=== PATIENT | male | born 1955 | race Caucasian/White ===

== ENCOUNTER 2017-03-20 10:54 | Inpatient (IN) | payer OTHER ==
[~2017-03-20] VITALS: Ht 170.2 cm; Wt 73.4 kg
[~2017-03-20 10:54] MED LIST: ADULT MULTIVI200 MCG PO; AMLODIPINE BES2.5 MG PO; ASPIR 8181 M1 PO; ATENOLOL50 MG PO; ATORVASTATIN CA10 MG PO; CEFDINIR300 MG PO; FENOFIBRATE150 MG PO; FERROUS SULFAT325 MG PO; HYDROCHLOROTHIA25 MG PO; NAMENDA5 MG PO; PANTOPRAZOLE SO40 MG PO; QUETIAPINE FUMA25 MG PO; THERAGRAN1 TABLET PO; TRICOR145 MG PO; Thiamine,Vitamin B1 PO
[2017-03-20 11:34] LABS: EOSINOPHIL (%) 0 % (0-5); HEMATOCRIT 27.5 % (38.0-50.0); IMMATURE GRANULOCYTE (%) 2.5 % (0.0-0.7); IMMATURE GRANULOCYTE COUNT 0.1 K/uL; INSTRUMENT ABS NEUTROPHIL CT 4.2 K/uL; LYMPHOCYTE COUNT 0.3 K/uL (1.0-2.8); MCH 33.5 PG (29.0-34.0); MCHC 33.8 G/DL (30.0-36.0); MEAN PLAT.VOLUME 12.8 uM^3 (9.0-12.4); MONOCYTE (%) 14.7 % (3-12); MONOCYTE COUNT 0.8 K/uL (0-0.8); NEUTROPHIL (%) 76.4 % (45-76); NEUTROPHIL COUNT 4.2 K/uL (1.8-6.4); PLATELET COUNT 81 K/uL (156-360); RBC DIS.WIDTH-SD 50.1 % (39-53); RED BLOOD COUNT 2.78 M/uL (4.00-5.50); WHITE BLOOD COUNT 5.5 K/uL (4.1-10.2)
[2017-03-20 11:37] LABS: MCV 98.9 FL (86-99)
[2017-03-20 11:55] LABS: CHLORIDE 89 mEq/L (99-109); POTASSIUM 3.5 mEq/L (3.7-5.4); SODIUM 134 mEq/L (136-147)
[2017-03-20 11:57] LABS: GLUCOSE 86 mg/dL (70-99)
[2017-03-20 11:58] LABS: ANION GAP 34 MEQ/L (2-14)
[2017-03-20 11:59] LABS: TOTAL BILIRUBIN 4.3 mg/dL (0.0-1.0)
[2017-03-20 12:01] LABS: ALKALINE PHOSPHATASE 505 IU/L (3-129); GFR ESTIMATE (CALCULATED) 44 mL/min/
[2017-03-20 12:02] LABS: UREA NITROGEN (BUN) 46 mg/dL (9-23)
[2017-03-20 12:04] LABS: LIPASE 1005 U/L (1.0-51.0)
[2017-03-20] MEDS ORDERED: B-1100 MG PO (12:34)
[2017-03-20] MEDS ORDERED: EXELON3 MG PO (12:35)
[2017-03-20] MEDS ORDERED: FUROSEMIDE20 MG PO (12:36)
[2017-03-20] MEDS ORDERED: OMEPRAZOLE20 MG PO (12:36)
[2017-03-20] MEDS ORDERED: KLOR-CON20 MEQ PO (12:37)
[2017-03-20] MEDS ORDERED: LO-DOSE ASPIRIN81 M1 PO (12:37)
[2017-03-20 13:10] LABS: SERUM ETHYL ALCOHOL < 10 mg/dL
[2017-03-20 13:11] LABS: INTER. NORMALIZED RATIO 1.1; PROTHROMBIN TIME 12.2 SEC (10.2-12.9)
[2017-03-20 13:14] LABS: PTT 26.8 SEC (25-37)
[2017-03-20 13:21] LABS: ADD MIUA? YES; BILIRUBIN NEGATIVE; BLOOD SMALL; COLOR AMBER ((YELLOW)); GLUCOSE (STRIP) NEGATIVE; KETONES 20; LEUKOCYTES NEGATIVE; NITRITE NEGATIVE; PROTEIN (STRIP) 100; SPECIFIC GRAVITY 1.011 (1.000-1.030)
[2017-03-20 13:38] LABS: BACTERIA NONE SEEN /HPF; EPITHELIAL CELLS RARE /HPF; HYALINE CASTS 15-20 /LPF; MUCUS TRACE /LPF; RED BLOOD CELLS 0-5 /HPF (0-5); UCUL ADDED? NO; WHITE BLOOD CELLS 0-5 /HPF (0-5)
[2017-03-20 16:28] VITALS: BP 175/95
[2017-03-20 19:08] VITALS: BP 151/72
[2017-03-20 20:35] VITALS: BP 154/78
[2017-03-20 22:53] VITALS: BP 110/59
[2017-03-21 02:50] VITALS: BP 113/66
[2017-03-21 06:40] LABS: HEMATOCRIT 22.5 % (38.0-50.0); MCH 34.7 PG (29.0-34.0); MCHC 34.7 G/DL (30.0-36.0); MEAN PLAT.VOLUME 12.9 uM^3 (9.0-12.4); PLATELET COUNT 64 K/uL (156-360); RBC DIS.WIDTH-CV 14.1 % (11.8-14.6); RBC DIS.WIDTH-SD 51.6 % (39-53); RED BLOOD COUNT 2.25 M/uL (4.00-5.50); WHITE BLOOD COUNT 2.6 K/uL (4.1-10.2)
[2017-03-21 06:50] LABS: PROTHROMBIN TIME 11.5 SEC (10.2-12.9)
[2017-03-21 06:52] VITALS: BP 99/58
[2017-03-21 06:53] LABS: PTT 34.9 SEC (25-37)
[2017-03-21 07:20] LABS: ANION GAP 24 MEQ/L (2-14); CHLORIDE 96 MEQ/L (99-109); GFR ESTIMATE (CALCULATED) > 59 mL/min/; GLUCOSE 71 mg/dL (70-99); LIPASE 982 U/L (1.0-51.0); POTASSIUM 2.8 MEQ/L (3.7-5.4); SAMPLE HEMOLYSIS CHECK 0; SAMPLE ICTERIC CHECK 0; SAMPLE LIPEMIA CHECK 0; SODIUM 140 MEQ/L (136-147); UREA NITROGEN (BUN) 36 mg/dL (9-23)
[2017-03-21 11:21] VITALS: BP 105/56
[2017-03-21 12:37] LABS: INTERNAL CONTROL VALID? YES
[2017-03-21 15:50] VITALS: BP 103/55
[2017-03-21 19:24] VITALS: BP 105/60
[2017-03-21 23:03] VITALS: BP 104/59
[2017-03-22 02:57] VITALS: BP 125/66
[2017-03-22 07:02] LABS: HEMATOCRIT 22.1 % (38.0-50.0); MCH 33.5 PG (29.0-34.0); MCHC 33.9 G/DL (30.0-36.0); MCV 98.7 FL (86-99); MEAN PLAT.VOLUME 12.6 uM^3 (9.0-12.4); PLATELET COUNT 66 K/uL (156-360); RBC DIS.WIDTH-CV 13.9 % (11.8-14.6); RBC DIS.WIDTH-SD 50.9 % (39-53); RED BLOOD COUNT 2.24 M/uL (4.00-5.50); WHITE BLOOD COUNT 2.6 K/uL (4.1-10.2)
[2017-03-22 07:43] LABS: ALKALINE PHOSPHATASE 335 IU/L (3-129); ANION GAP 13 MEQ/L (2-14); CHLORIDE 104 MEQ/L (99-109); GFR ESTIMATE (CALCULATED) > 59 mL/min/; LIPASE 687 U/L (1.0-51.0); POTASSIUM 2.8 MEQ/L (3.7-5.4); SAMPLE HEMOLYSIS CHECK 0; SAMPLE ICTERIC CHECK 0; SAMPLE LIPEMIA CHECK 0; SODIUM 141 MEQ/L (136-147); UREA NITROGEN (BUN) 25 mg/dL (9-23)
[2017-03-22 07:51] LABS: GLUCOSE 110 mg/dL (70-99); MAGNESIUM 0.8 mg/dl (1.3-2.7)
[2017-03-22 08:55] VITALS: BP 115/72
[2017-03-22 12:39] VITALS: BP 122/74
[2017-03-22 16:18] VITALS: BP 117/72
[2017-03-22 19:28] VITALS: BP 113/64
[2017-03-22 22:54] VITALS: BP 133/81
[2017-03-23 02:54] VITALS: BP 146/89
[2017-03-23 06:00] LABS: HEMATOCRIT 22.4 % (38.0-50.0); MCH 34.4 PG (29.0-34.0); MCHC 33.9 G/DL (30.0-36.0); MCV 101.4 FL (86-99); MEAN PLAT.VOLUME 12.6 uM^3 (9.0-12.4); PLATELET COUNT 74 K/uL (156-360); RBC DIS.WIDTH-CV 14.5 % (11.8-14.6); RBC DIS.WIDTH-SD 52.8 % (39-53); RED BLOOD COUNT 2.21 M/uL (4.00-5.50); WHITE BLOOD COUNT 2.6 K/uL (4.1-10.2)
[2017-03-23 06:39] LABS: ALKALINE PHOSPHATASE 357 IU/L (3-129); ANION GAP 9 MEQ/L (2-14); CHLORIDE 110 MEQ/L (99-109); GFR ESTIMATE (CALCULATED) > 59 mL/min/; GLUCOSE 103 mg/dL (70-99); SAMPLE HEMOLYSIS CHECK 0; SAMPLE ICTERIC CHECK 0; SAMPLE LIPEMIA CHECK 0; SODIUM 142 MEQ/L (136-147); TOTAL BILIRUBIN 1.6 MG/DL (0.0-1.0); UREA NITROGEN (BUN) 14 mg/dL (9-23)
[2017-03-23 06:41] LABS: POTASSIUM 3.5 MEQ/L (3.7-5.4)
[2017-03-23 06:42] LABS: MAGNESIUM 1.4 mg/dl (1.3-2.7)
[2017-03-23 07:54] VITALS: BP 129/65
[2017-03-23 11:52] VITALS: BP 144/74
[2017-03-23 15:52] VITALS: BP 130/64
[2017-03-23 22:50] VITALS: BP 138/72
[2017-03-24 06:40] LABS: HEMATOCRIT 22.4 % (38.0-50.0); MCH 34.3 PG (29.0-34.0); MCV 103.7 FL (86-99); MEAN PLAT.VOLUME 12.9 uM^3 (9.0-12.4); NRBC (%) 0.7 /100 WBC (0-0); PLATELET COUNT 83 K/uL (156-360); RBC DIS.WIDTH-SD 56.6 % (39-53); RED BLOOD COUNT 2.16 M/uL (4.00-5.50)
[2017-03-24 07:05] LABS: ALKALINE PHOSPHATASE 337 IU/L (3-129); ANION GAP 9 MEQ/L (2-14); CHLORIDE 112 MEQ/L (99-109); GFR ESTIMATE (CALCULATED) > 59 mL/min/; GLUCOSE 94 mg/dL (70-99); POTASSIUM 4.1 MEQ/L (3.7-5.4); SAMPLE HEMOLYSIS CHECK 0; SAMPLE ICTERIC CHECK 0; SAMPLE LIPEMIA CHECK 0; SODIUM 142 MEQ/L (136-147); TOTAL BILIRUBIN 1.5 MG/DL (0.0-1.0); UREA NITROGEN (BUN) 11 mg/dL (9-23)
[2017-03-24 08:16] VITALS: BP 103/68
[2017-03-24 15:00] VITALS: BP 124/74
[2017-03-24 19:35] VITALS: BP 118/71
[2017-03-25 00:22] VITALS: BP 136/86
[2017-03-25 06:44] LABS: HEMATOCRIT 26.6 % (38.0-50.0); MCH 33.7 PG (29.0-34.0); MCHC 32.7 G/DL (30.0-36.0); MCV 103.1 FL (86-99); MEAN PLAT.VOLUME 12.4 uM^3 (9.0-12.4); RBC DIS.WIDTH-CV 15.3 % (11.8-14.6); RED BLOOD COUNT 2.58 M/uL (4.00-5.50); WHITE BLOOD COUNT 4.4 K/uL (4.1-10.2)
[2017-03-25 06:46] LABS: PLATELET COUNT 124 K/uL (156-360)
[2017-03-25 07:01] LABS: ALKALINE PHOSPHATASE 379 IU/L (3-129); ANION GAP 11 MEQ/L (2-14); CHLORIDE 105 MEQ/L (99-109); GFR ESTIMATE (CALCULATED) > 59 mL/min/; GLUCOSE 101 mg/dL (70-99); POTASSIUM 4.2 MEQ/L (3.7-5.4); SAMPLE HEMOLYSIS CHECK 0; SAMPLE ICTERIC CHECK 0; SAMPLE LIPEMIA CHECK 0; SODIUM 138 MEQ/L (136-147); TOTAL BILIRUBIN 1.8 MG/DL (0.0-1.0); UREA NITROGEN (BUN) 12 mg/dL (9-23)
[2017-03-25 08:51] VITALS: BP 125/78
[2017-03-25 15:06] VITALS: BP 115/75
[2017-03-25 20:59] VITALS: BP 114/69
[2017-03-25 23:17] VITALS: BP 123/58
[2017-03-25 23:18] VITALS: BP 123/58
[2017-03-26] MEDS ORDERED: CHLORDIAZEPOXID25 MG PO (06:15)
[2017-03-26] MEDS ORDERED: FLUOXETINE HCL20 MG PO (06:15)
[2017-03-26 07:46] VITALS: BP 111/66
[2017-03-26 07:46] LABS: HEMATOCRIT 28.1 % (38.0-50.0); MCH 33.6 PG (29.0-34.0); MCHC 32.4 G/DL (30.0-36.0); MCV 103.7 FL (86-99); MEAN PLAT.VOLUME 12.2 uM^3 (9.0-12.4); PLATELET COUNT 137 K/uL (156-360); RBC DIS.WIDTH-CV 15.5 % (11.8-14.6); RED BLOOD COUNT 2.71 M/uL (4.00-5.50); WHITE BLOOD COUNT 4.7 K/uL (4.1-10.2)
[2017-03-26 08:11] LABS: ALKALINE PHOSPHATASE 387 IU/L (3-129); ANION GAP 12 MEQ/L (2-14); CHLORIDE 105 MEQ/L (99-109); GFR ESTIMATE (CALCULATED) > 59 mL/min/; GLUCOSE 102 mg/dL (70-99); POTASSIUM 4.6 MEQ/L (3.7-5.4); SAMPLE HEMOLYSIS CHECK 0; SAMPLE ICTERIC CHECK 0; SAMPLE LIPEMIA CHECK 0; SODIUM 134 MEQ/L (136-147); TOTAL BILIRUBIN 1.7 MG/DL (0.0-1.0); UREA NITROGEN (BUN) 13 mg/dL (9-23)
== END 2017-03-26 11:44 | disposition home health service (06) | DRG 438 ==
LOC: EME 10:54 → 5EAST 14:35 → EDOF 14:35 → ENRESERV 14:36 → 5EAST 16:14 → ENPENDDIS 03-26 → 5EAST 03-26 11:44
PROVIDERS: Emergency Medicine; Hospitalist; Internal Medicine; Specialist
DX: K85.20 Alcohol induced acute pancreatitis without necrosis or infection (principal); K83.1 Obstruction of bile duct; F10.188 Alcohol abuse with other alcohol-induced disorder; E87.2 Acidosis; E87.1 Hypo-osmolality and hyponatremia; D61.818 Other pancytopenia; E44.0 Moderate protein-calorie malnutrition; F33.9 Major depressive disorder, recurrent, unspecified; N17.9 Acute kidney failure, unspecified; E83.42 Hypomagnesemia; E87.6 Hypokalemia; K70.40 Alcoholic hepatic failure without coma; K70.30 Alcoholic cirrhosis of liver without ascites; Y90.0 Blood alcohol level of less than 20 mg/100 ml; F17.210 Nicotine dependence, cigarettes, uncomplicated; I10 Essential (primary) hypertension; K21.9 Gastro-esophageal reflux disease without esophagitis; K70.10 Alcoholic hepatitis without ascites; K76.0 Fatty (change of) liver, not elsewhere classified; Z79.82 Long term (current) use of aspirin; Z87.11 Personal history of peptic ulcer disease; Z96.641 Presence of right artificial hip joint; Z60.2 Problems related to living alone
CPT/HCPCS: 36415; 74181; 76705; 80048; 80053; 81003; 82140; 83630; 83690; 83735; 84100; 85025; 85027; 85610; 85730; 87177; 87506; 99281; 99285; G0480; J0610; J1644; J3411; J3475; J3480; J7030; J7040; J7050

== ENCOUNTER 2017-04-07 23:01 | Inpatient (IN) | payer OTHER ==
[~2017-04-07] VITALS: Ht 170.2 cm; Wt 71.4 kg
[~2017-04-07 23:01] MED LIST changes: +B-1100 MG PO; +CHLORDIAZEPOXID25 MG PO; +EXELON3 MG PO; +FLUOXETINE HCL20 MG PO; +FUROSEMIDE20 MG PO; +KLOR-CON20 MEQ PO; +LO-DOSE ASPIRIN81 M1 PO; +OMEPRAZOLE20 MG PO
[2017-04-08 00:59] LABS: CHLORIDE 103 mEq/L (99-109); POTASSIUM 3.7 mEq/L (3.7-5.4); SODIUM 140 mEq/L (136-147)
[2017-04-08 01:01] LABS: GLUCOSE 87 mg/dL (70-99)
[2017-04-08 01:03] LABS: ANION GAP 17 MEQ/L (2-14)
[2017-04-08 01:04] LABS: SERUM ETHYL ALCOHOL < 10 mg/dL
[2017-04-08 01:05] LABS: GFR ESTIMATE (CALCULATED) > 59 mL/min/
[2017-04-08 01:06] LABS: UREA NITROGEN (BUN) 8 mg/dL (9-23)
[2017-04-08 01:08] LABS: CREATINE KINASE 21 IU/L (1-294)
[2017-04-08 01:10] LABS: HEMATOCRIT 31.1 % (38.0-50.0); MCH 32.4 PG (29.0-34.0); MCHC 32.8 G/DL (30.0-36.0); MCV 98.7 FL (86-99); RBC DIS.WIDTH-CV 13.5 % (11.8-14.6); RED BLOOD COUNT 3.15 M/uL (4.00-5.50); WHITE BLOOD COUNT 5.9 K/uL (4.1-10.2)
[2017-04-08 01:11] LABS: EOSINOPHIL (%) 1.5 % (0-5); IMMATURE GRANULOCYTE (%) 0.5 % (0.0-0.7); MEAN PLAT.VOLUME 12.1 uM^3 (9.0-12.4); MONOCYTE (%) 4.6 % (3-12); NEUTROPHIL (%) 83.4 % (45-76); PLATELET COUNT 75 K/uL (156-360)
[2017-04-08 04:23] LABS: AMPHETAMINE NEGATIVE (500 ng/mL); BENZODIAZEPINES PRESUMPTIVE POSITIVE (150 ng/mL); COCAINE NEGATIVE (150 ng/mL); METHAMPHETAMINE NEGATIVE (500 ng/mL); OPIATES (MORPHINE) NEGATIVE (100 ng/mL); PHENCYCLIDINE NEGATIVE (25 ng/mL); THC CANNABINOIDS NEGATIVE (50 ng/mL)
[2017-04-08 04:24] LABS: ADD MEDTOX COMMENT Y; BARBITURATES NEGATIVE (200 ng/mL); INTERNAL CONTROLS VALID? YES; METHADONE NEGATIVE (200 ng/mL); OXYCODONE NEGATIVE (100 ng/mL); PROPOXYPHENE NEGATIVE (300 ng/mL); TRICYCLIC ANTIDEPRESSANTS NEGATIVE (300 ng/mL)
[2017-04-08 04:31] LABS: ADD MIUA? YES; BILIRUBIN NEGATIVE; BLOOD MODERATE; COLOR AMBER ((YELLOW)); GLUCOSE (STRIP) NEGATIVE; KETONES 20; LEUKOCYTES NEGATIVE; NITRITE NEGATIVE; PROTEIN (STRIP) 100; SPECIFIC GRAVITY 1.017 (1.000-1.030)
[2017-04-08 04:43] LABS: BACTERIA NONE SEEN /HPF; EPITHELIAL CELLS NONE SEEN /HPF; HYALINE CASTS 0-5 /LPF; MUCUS TRACE /LPF; RED BLOOD CELLS TNTC /HPF (0-5); UCUL ADDED? YES; WHITE BLOOD CELLS 0-5 /HPF (0-5)
[2017-04-08 05:09] LABS: BENZODIAZEPINES, URINE SCREEN POSITIVE (200 ng/mL)
[2017-04-08 16:01] VITALS: BP 139/86
[2017-04-08 16:39] LABS: HDL CHOLESTEROL 90 MG/DL (Desirable>=40); LDL CHOLESTEROL 110 mg/dL (Desirable<100); NON-HDL CHOLESTEROL 119 mg/dL (Desirable<160); TOTAL CHOLESTEROL 209 mg/dL (Desirable<200); TRIGLYCERIDES 44 MG/DL (Normal: <150)
[2017-04-08 17:42] LABS: Estimated Average Glucose 74 mg/dL (70-123)
[2017-04-08 17:48] LABS: HEMOGLOBIN A1c (GLYCOHEMOGLOB) 4.2 % HGB (Below 5.7)
[2017-04-08 20:52] VITALS: BP 122/72
[2017-04-08 23:40] VITALS: BP 124/74
[2017-04-09 06:32] LABS: HEMATOCRIT 28.6 % (38.0-50.0); MCH 31.8 PG (29.0-34.0); MCHC 31.5 G/DL (30.0-36.0); MCV 101.1 FL (86-99); MEAN PLAT.VOLUME 12.6 uM^3 (9.0-12.4); PLATELET COUNT 79 K/uL (156-360); RBC DIS.WIDTH-CV 13.8 % (11.8-14.6); RBC DIS.WIDTH-SD 50.9 % (39-53); RED BLOOD COUNT 2.83 M/uL (4.00-5.50)
[2017-04-09 06:47] LABS: ALKALINE PHOSPHATASE 310 IU/L (3-129); ANION GAP 8 MEQ/L (2-14); CHLORIDE 111 MEQ/L (99-109); GFR ESTIMATE (CALCULATED) > 59 mL/min/; GLUCOSE 85 mg/dL (70-99); POTASSIUM 3.6 MEQ/L (3.7-5.4); SAMPLE HEMOLYSIS CHECK 0; SAMPLE ICTERIC CHECK 0; SAMPLE LIPEMIA CHECK 0; SODIUM 142 MEQ/L (136-147); TOTAL BILIRUBIN 1.2 MG/DL (0.0-1.0); UREA NITROGEN (BUN) 6 mg/dL (9-23)
[2017-04-09 07:31] LABS: SERUM ETHYL ALCOHOL < 10 mg/dL
[2017-04-09 07:39] VITALS: BP 166/86
[2017-04-09 16:03] VITALS: BP 163/88
[2017-04-09 23:36] VITALS: BP 121/76
[2017-04-10 06:44] LABS: HEMATOCRIT 26.3 % (38.0-50.0); MCH 33.3 PG (29.0-34.0); MCHC 32.7 G/DL (30.0-36.0); MCV 101.9 FL (86-99); MEAN PLAT.VOLUME 11.7 uM^3 (9.0-12.4); PLATELET COUNT 77 K/uL (156-360); RBC DIS.WIDTH-CV 13.8 % (11.8-14.6); RBC DIS.WIDTH-SD 51.5 % (39-53); RED BLOOD COUNT 2.58 M/uL (4.00-5.50); WHITE BLOOD COUNT 2.9 K/uL (4.1-10.2)
[2017-04-10 08:00] VITALS: BP 178/96
[2017-04-10 08:06] LABS: ALKALINE PHOSPHATASE 248 IU/L (3-129); ANION GAP 10 MEQ/L (2-14); CHLORIDE 110 MEQ/L (99-109); GFR ESTIMATE (CALCULATED) > 59 mL/min/; GLUCOSE 90 mg/dL (70-99); POTASSIUM 3.4 MEQ/L (3.7-5.4); SAMPLE HEMOLYSIS CHECK 0; SAMPLE ICTERIC CHECK 0; SAMPLE LIPEMIA CHECK 0; SODIUM 143 MEQ/L (136-147); TOTAL BILIRUBIN 1.1 MG/DL (0.0-1.0); UREA NITROGEN (BUN) 5 mg/dL (9-23)
[2017-04-10 15:17] VITALS: BP 131/78
[2017-04-10 18:21] VITALS: BP 143/82
[2017-04-10 23:35] VITALS: BP 176/98
[2017-04-11 04:13] LABS: INTERNAL CONTROL VALID? YES
[2017-04-11 04:57] LABS: C DIFF TOXIN NEGATIVE (NEGATIVE)
[2017-04-11 04:59] LABS: PROBE CHECK PASS; SPECIMEN PROCESSING CONTROL PASS
[2017-04-11 06:55] LABS: HEMATOCRIT 28.8 % (38.0-50.0); MCH 33.6 PG (29.0-34.0); MCHC 33.3 G/DL (30.0-36.0); MCV 100.7 FL (86-99); MEAN PLAT.VOLUME 12.1 uM^3 (9.0-12.4); PLATELET COUNT 92 K/uL (156-360); RBC DIS.WIDTH-CV 13.6 % (11.8-14.6); RBC DIS.WIDTH-SD 50.4 % (39-53); RED BLOOD COUNT 2.86 M/uL (4.00-5.50); RETIC HGB EQUIVALENT 32.1 (28-36); RETICULOCYTE COUNT 2.7 % (0.5-1.8); WHITE BLOOD COUNT 3.5 K/uL (4.1-10.2)
[2017-04-11 06:59] LABS: PROTHROMBIN TIME 11.2 SEC (10.2-12.9)
[2017-04-11 07:48] LABS: ALKALINE PHOSPHATASE 242 IU/L (3-129); ANION GAP 9 MEQ/L (2-14); CHLORIDE 108 MEQ/L (99-109); GFR ESTIMATE (CALCULATED) > 59 mL/min/; GLUCOSE 92 mg/dL (70-99); POTASSIUM 3.6 MEQ/L (3.7-5.4); SAMPLE HEMOLYSIS CHECK 0; SAMPLE ICTERIC CHECK 0; SAMPLE LIPEMIA CHECK 0; SODIUM 142 MEQ/L (136-147); TOTAL BILIRUBIN 1.1 MG/DL (0.0-1.0); UREA NITROGEN (BUN) 7 mg/dL (9-23)
[2017-04-11 07:59] VITALS: BP 171/81
[2017-04-11 08:02] LABS: FERRITIN 120 NG/ML (22-322)
[2017-04-11 16:02] VITALS: BP 135/76
[2017-04-11 22:26] LABS: INTERNAL CONTROL VALID? YES
[2017-04-11 23:49] VITALS: BP 119/67
[2017-04-12 06:24] LABS: HEMATOCRIT 25.9 % (38.0-50.0); MCH 33.3 PG (29.0-34.0); MCHC 33.2 G/DL (30.0-36.0); MCV 100.4 FL (86-99); MEAN PLAT.VOLUME 11.6 uM^3 (9.0-12.4); PLATELET COUNT 87 K/uL (156-360); RBC DIS.WIDTH-CV 13.7 % (11.8-14.6); RBC DIS.WIDTH-SD 49.9 % (39-53); RED BLOOD COUNT 2.58 M/uL (4.00-5.50); WHITE BLOOD COUNT 3.4 K/uL (4.1-10.2)
[2017-04-12 06:47] LABS: ALKALINE PHOSPHATASE 247 IU/L (3-129); ANION GAP 7 MEQ/L (2-14); CHLORIDE 107 MEQ/L (99-109); GFR ESTIMATE (CALCULATED) > 59 mL/min/; GLUCOSE 87 mg/dL (70-99); SAMPLE HEMOLYSIS CHECK 0; SAMPLE ICTERIC CHECK 0; SAMPLE LIPEMIA CHECK 0; SODIUM 140 MEQ/L (136-147); TOTAL BILIRUBIN 0.9 MG/DL (0.0-1.0); UREA NITROGEN (BUN) 8 mg/dL (9-23)
[2017-04-12 07:21] VITALS: BP 141/70
[2017-04-12 09:57] LABS: INTERNAL CONTROL VALID? YES
[2017-04-12 15:11] VITALS: BP 104/64
[2017-04-12 23:48] VITALS: BP 138/84
[2017-04-13 06:10] LABS: HEMATOCRIT 27.4 % (38.0-50.0); MCHC 31.8 G/DL (30.0-36.0); MCV 100.7 FL (86-99); MEAN PLAT.VOLUME 12.1 uM^3 (9.0-12.4); PLATELET COUNT 98 K/uL (156-360); RBC DIS.WIDTH-CV 13.5 % (11.8-14.6); RBC DIS.WIDTH-SD 49.7 % (39-53); RED BLOOD COUNT 2.72 M/uL (4.00-5.50); WHITE BLOOD COUNT 3.5 K/uL (4.1-10.2)
[2017-04-13 06:34] LABS: ALKALINE PHOSPHATASE 225 IU/L (3-129); ANION GAP 6 MEQ/L (2-14); CHLORIDE 104 MEQ/L (99-109); GFR ESTIMATE (CALCULATED) > 59 mL/min/; GLUCOSE 83 mg/dL (70-99); POTASSIUM 3.8 MEQ/L (3.7-5.4); SAMPLE HEMOLYSIS CHECK 0; SAMPLE ICTERIC CHECK 0; SAMPLE LIPEMIA CHECK 0; SODIUM 138 MEQ/L (136-147); UREA NITROGEN (BUN) 8 mg/dL (9-23)
[2017-04-13 07:16] VITALS: BP 162/81
[2017-04-13 15:13] VITALS: BP 116/65
[2017-04-13 19:38] VITALS: BP 120/73
[2017-04-14] VITALS: BP 138/83
[2017-04-14 08:01] VITALS: BP 133/78
[2017-04-14] MEDS ORDERED: LOSARTAN POTASS50 MG PO (08:24)
[2017-04-14 15:26] VITALS: BP 108/61
[2017-04-14 23:54] VITALS: BP 132/79
[2017-04-15 08:08] VITALS: BP 167/88
[2017-04-15 15:39] VITALS: BP 120/63
== END 2017-04-15 18:17 | DRG 433 ==
LOC: EME → EDBD 23:01 → EME 23:01 → 5SOUTH 04-08 08:15 → EDOF 04-08 08:15 → ENRESERV 04-08 08:27 → CANRESERV 04-08 09:22 → ENRESERV 04-08 09:49 → 5SOUTH 04-08 13:18
PROVIDERS: Emergency Medicine; Internal Medicine
DX: K70.40 Alcoholic hepatic failure without coma (principal); F10.27 Alcohol dependence with alcohol-induced persisting dementia; K70.10 Alcoholic hepatitis without ascites; T51.0X1A Toxic effect of ethanol, accidental (unintentional), initial encounter; D61.818 Other pancytopenia; I10 Essential (primary) hypertension; K21.9 Gastro-esophageal reflux disease without esophagitis; I67.9 Cerebrovascular disease, unspecified; F32.9 Major depressive disorder, single episode, unspecified; H91.93 Unspecified hearing loss, bilateral; Z86.73 Personal history of transient ischemic attack (TIA), and cerebral infarction without residual deficits; F17.200 Nicotine dependence, unspecified, uncomplicated; Z96.641 Presence of right artificial hip joint; Z91.14 Patient's other noncompliance with medication regimen
CPT/HCPCS: 70450; 70553; 71250; 73080; 74176; 80048; 80053; 80061; 81003; 82140; 82272; 82550; 82728; 82746; 83036; 83605; 83735; 84100; 84999; 85025; 85027; 85045; 85610; 87040; 87086; 87493; 92610 GN; 94799; 97530 GP; 99281; 99285; G0480; J0360; J7030

== ENCOUNTER 2017-05-08 13:03 | Emergency (ER) | payer OTHER ==
[~2017-05-08] VITALS: Ht 170.2 cm; Wt 78.2 kg
[~2017-05-08 13:03] MED LIST changes: +LOSARTAN POTASS50 MG PO
[2017-05-08] MEDS ORDERED: EXELON3 MG PO (13:22)
[2017-05-08] MEDS ORDERED: MOTRIN800 MG PO (15:28)
[2017-05-08 16:52] VITALS: BP 172/89
== END 2017-05-08 17:33 | disposition home or self-care (01) ==
LOC: EME 13:03
DX: S82.001A Unspecified fracture of right patella, initial encounter for closed fracture (principal); S50.02XA Contusion of left elbow, initial encounter; S20.219A Contusion of unspecified front wall of thorax, initial encounter; M79.642 Pain in left hand; W18.30XA Fall on same level, unspecified, initial encounter; K21.9 Gastro-esophageal reflux disease without esophagitis; K75.9 Inflammatory liver disease, unspecified; K72.90 Hepatic failure, unspecified without coma; Z86.73 Personal history of transient ischemic attack (TIA), and cerebral infarction without residual deficits; Z96.641 Presence of right artificial hip joint; Z79.82 Long term (current) use of aspirin; F17.200 Nicotine dependence, unspecified, uncomplicated
CPT/HCPCS: 70450; 71100; 73080; 73130; 73564; 99281; 99284

== ENCOUNTER 2017-09-10 15:36 | Inpatient (IN) | payer OTHER ==
[~2017-09-10] VITALS: Ht 170.2 cm; Wt 85.4 kg
[~2017-09-10 15:36] MED LIST changes: +MOTRIN800 MG PO
[2017-09-10 15:50] LABS: BASOPHIL (%) 0.1 % (0-1); EOSINOPHIL (%) 0.1 % (0-5); HEMATOCRIT 34.3 % (38.0-50.0); HEMOGLOBIN 11.9 G/DL (12.5-16.6); IMMATURE GRANULOCYTE (%) 0.9 % (0.0-0.7); LYMPHOCYTE (%) 6.8 % (15-42); LYMPHOCYTE COUNT 0.8 K/uL (1.0-2.8); MCH 30.9 PG (29.0-34.0); MCHC 34.7 G/DL (30.0-36.0); MCV 89.1 FL (86-99); MONOCYTE COUNT 1.9 K/uL (0-0.8); NEUTROPHIL (%) 76.1 % (45-76); NEUTROPHIL COUNT 8.9 K/uL (1.8-6.4); PLATELET COUNT 118 K/uL (156-360); RBC DIS.WIDTH-SD 54.8 % (39-53); RED BLOOD COUNT 3.85 M/uL (4.00-5.50); WHITE BLOOD COUNT 11.7 K/uL (4.1-10.2)
[2017-09-10 15:58] LABS: AMYLASE 56 IU/L (1-118); CHLORIDE 100 mEq/L (99-109); POTASSIUM 4.1 mEq/L (3.7-5.4); SODIUM 141 mEq/L (136-147)
[2017-09-10 16:00] LABS: GLUCOSE 103 mg/dL (70-99)
[2017-09-10 16:03] LABS: SERUM ETHYL ALCOHOL < 10 mg/dL
[2017-09-10 16:04] LABS: CREATININE 2.1 mg/dL (0.6-1.3); GFR ESTIMATE (CALCULATED) 34 mL/min/ (58.99-99999)
[2017-09-10 16:05] LABS: UREA NITROGEN (BUN) 56 mg/dL (9-23)
[2017-09-10 16:07] LABS: LIPASE 6 U/L (1.0-51.0)
[2017-09-10 16:09] LABS: TROP-I INTERPRETATION NEGATIVE; TROPONIN-I 0.06 ng/mL (0.0-0.30)
[2017-09-10 16:12] LABS: CREATINE KINASE 1706 IU/L (1-294)
[2017-09-10] MEDS ORDERED: CHLORDIAZEPOXID10 MG PO (17:35)
[2017-09-10] MEDS ORDERED: ONCE DAILY1 EACH PO (17:37)
[2017-09-10] MEDS ORDERED: FERRETTS325 MG PO (17:37)
[2017-09-10] MEDS ORDERED: ASPIR 8181 M1 PO (17:38)
[2017-09-10] MEDS ORDERED: POTASSIUM CHLO20 ME1 PO (17:39)
[2017-09-10] MEDS ORDERED: OMEPRAZOLE20 M2 PO (17:39)
[2017-09-10 21:14] VITALS: BP 136/64
[2017-09-10 23:23] VITALS: BP 133/61
[2017-09-11 00:55] LABS: APPEARANCE SL.HAZY ((CLEAR)); BILIRUBIN NEGATIVE; BLOOD SMALL; COLOR AMBER ((YELLOW)); GLUCOSE (STRIP) NEGATIVE; KETONES 5; LEUKOCYTES NEGATIVE; NITRITE NEGATIVE; PROTEIN (STRIP) 100; SPECIFIC GRAVITY 1.021 (1.000-1.030)
[2017-09-11 01:02] LABS: BENZODIAZEPINES, URINE SCREEN POSITIVE (200 ng/mL)
[2017-09-11 01:14] LABS: BACTERIA RARE /HPF; EPITHELIAL CELLS RARE /HPF; HYALINE CASTS 20-30 /LPF; MUCUS 1+ /LPF; RED BLOOD CELLS 0-5 /HPF (0-5); UCUL ADDED? NO; WHITE BLOOD CELLS 0-5 /HPF (0-5)
[2017-09-11 06:02] LABS: HEMATOCRIT 26.8 % (38.0-50.0); MCH 30.4 PG (29.0-34.0); MCHC 34.3 G/DL (30.0-36.0); MCV 88.4 FL (86-99); PLATELET COUNT 84 K/uL (156-360); RBC DIS.WIDTH-CV 17.2 % (11.8-14.6); RBC DIS.WIDTH-SD 55.5 % (39-53); WHITE BLOOD COUNT 6.7 K/uL (4.1-10.2)
[2017-09-11 06:05] LABS: HEMOGLOBIN 9.2 G/DL (12.5-16.6); RED BLOOD COUNT 3.03 M/uL (4.00-5.50)
[2017-09-11 06:24] LABS: ALBUMIN 3.2 G/DL (3.2-4.8); ALKALINE PHOSPHATASE 165 IU/L (3-129); ALT (GPT) 49 IU/L (3-49); AST (GOT) 84 IU/L (2-34); CHLORIDE 107 MEQ/L (99-109); DIRECT BILIRUBIN 0.5 mg/dL (0.0-0.3); GLUCOSE 101 mg/dL (70-99); POTASSIUM 3.3 MEQ/L (3.7-5.4); SODIUM 143 MEQ/L (136-147); TOTAL BILIRUBIN 1.5 MG/DL (0.0-1.0); TOTAL PROTEIN 5.4 G/DL (6.4-8.3); UREA NITROGEN (BUN) 56 mg/dL (9-23)
[2017-09-11 06:25] LABS: CREATINE KINASE 2393 IU/L (1-294); CREATININE 1.5 MG/DL (0.6-1.3); GFR ESTIMATE (CALCULATED) 51 mL/min/ (58.99-99999)
[2017-09-11 08:00] VITALS: BP 144/65
[2017-09-11 11:57] VITALS: BP 148/70
[2017-09-11 15:38] VITALS: BP 158/73
[2017-09-11 19:15] VITALS: BP 162/77
[2017-09-11 23:20] VITALS: BP 153/81
[2017-09-12 06:42] LABS: HEMATOCRIT 29.7 % (38.0-50.0); MCH 30.9 PG (29.0-34.0); MCHC 33.7 G/DL (30.0-36.0); MCV 91.7 FL (86-99); PLATELET COUNT 94 K/uL (156-360); RBC DIS.WIDTH-SD 56.6 % (39-53); RED BLOOD COUNT 3.24 M/uL (4.00-5.50); WHITE BLOOD COUNT 5.2 K/uL (4.1-10.2)
[2017-09-12 07:17] LABS: ALBUMIN 3.3 G/DL (3.2-4.8); ALKALINE PHOSPHATASE 161 IU/L (3-129); ALT (GPT) 48 IU/L (3-49); AST (GOT) 114 IU/L (2-34); CHLORIDE 103 MEQ/L (99-109); GLUCOSE 102 mg/dL (70-99); POTASSIUM 3.2 MEQ/L (3.7-5.4); SODIUM 145 MEQ/L (136-147); TOTAL BILIRUBIN 1.6 MG/DL (0.0-1.0); TOTAL PROTEIN 6.2 G/DL (6.4-8.3); UREA NITROGEN (BUN) 36 mg/dL (9-23)
[2017-09-12 07:19] LABS: GFR ESTIMATE (CALCULATED) > 59 mL/min/ (58.99-99999)
[2017-09-12 07:26] LABS: CREATINE KINASE 4039 IU/L (1-294)
[2017-09-12 08:09] VITALS: BP 153/73
[2017-09-12 16:03] VITALS: BP 120/64
[2017-09-12 19:40] VITALS: BP 118/63
[2017-09-12 23:38] VITALS: BP 124/86
[2017-09-13 03:14] VITALS: BP 140/77
[2017-09-13 04:50] LABS: HEMOGLOBIN 8.7 G/DL (12.5-16.6); MCH 31.3 PG (29.0-34.0); MCHC 34.8 G/DL (30.0-36.0); MCV 89.9 FL (86-99); PLATELET COUNT 107 K/uL (156-360); RBC DIS.WIDTH-CV 16.4 % (11.8-14.6); RBC DIS.WIDTH-SD 54.3 % (39-53); RED BLOOD COUNT 2.78 M/uL (4.00-5.50); WHITE BLOOD COUNT 3.1 K/uL (4.1-10.2)
[2017-09-13 05:07] LABS: ALBUMIN 2.8 g/dL (3.2-4.8); CHLORIDE 95 mEq/L (99-109); SODIUM 141 mEq/L (136-147)
[2017-09-13 05:10] LABS: GLUCOSE 119 mg/dL (70-99); TOTAL PROTEIN 5.1 g/dL (6.4-8.3)
[2017-09-13 05:11] LABS: TOTAL BILIRUBIN 1.5 mg/dL (0.0-1.0)
[2017-09-13 05:13] LABS: ALKALINE PHOSPHATASE 169 IU/L (3-129); CREATININE 0.8 mg/dL (0.6-1.3); GFR ESTIMATE (CALCULATED) > 59 mL/min/ (58.99-99999)
[2017-09-13 05:14] LABS: UREA NITROGEN (BUN) 22 mg/dL (9-23)
[2017-09-13 05:15] LABS: AST (GOT) 111 IU/L (2-34)
[2017-09-13 05:16] LABS: ALT (GPT) 48 IU/L (3-49); POTASSIUM 2.5 mEq/L (3.7-5.4)
[2017-09-13 05:18] LABS: CREATINE KINASE 2996 IU/L (1-294)
[2017-09-13 07:42] LABS: ALBUMIN 2.6 G/DL (3.2-4.8); ALKALINE PHOSPHATASE 143 IU/L (3-129); ALT (GPT) 39 IU/L (3-49); AST (GOT) 92 IU/L (2-34); CHLORIDE 96 MEQ/L (99-109); CREATININE 0.8 MG/DL (0.6-1.3); GFR ESTIMATE (CALCULATED) > 59 mL/min/ (58.99-99999); GLUCOSE 120 mg/dL (70-99); POTASSIUM 2.7 MEQ/L (3.7-5.4); SODIUM 144 MEQ/L (136-147); TOTAL BILIRUBIN 1.4 MG/DL (0.0-1.0); UREA NITROGEN (BUN) 20 mg/dL (9-23)
[2017-09-13 08:20] VITALS: BP 121/70
[2017-09-13 12:45] VITALS: BP 122/72
[2017-09-13 17:13] VITALS: BP 124/70
[2017-09-13 20:03] VITALS: BP 128/67
[2017-09-14 00:30] VITALS: BP 153/86
[2017-09-14 05:44] LABS: HEMATOCRIT 26.1 % (38.0-50.0); HEMOGLOBIN 8.6 G/DL (12.5-16.6); MCH 30.7 PG (29.0-34.0); MCV 93.2 FL (86-99); PLATELET COUNT 121 K/uL (156-360); RBC DIS.WIDTH-CV 16.4 % (11.8-14.6); RBC DIS.WIDTH-SD 56.3 % (39-53); WHITE BLOOD COUNT 4.2 K/uL (4.1-10.2)
[2017-09-14 06:33] VITALS: BP 153/86
[2017-09-14 07:21] VITALS: BP 139/78
[2017-09-14 10:39] LABS: ALBUMIN 2.8 G/DL (3.2-4.8); ALKALINE PHOSPHATASE 153 IU/L (3-129); ALT (GPT) 43 IU/L (3-49); AST (GOT) 89 IU/L (2-34); CHLORIDE 93 MEQ/L (99-109); CREATININE 0.7 MG/DL (0.6-1.3); GFR ESTIMATE (CALCULATED) > 59 mL/min/ (58.99-99999); GLUCOSE 154 mg/dL (70-99); POTASSIUM 2.9 MEQ/L (3.7-5.4); SODIUM 140 MEQ/L (136-147); TOTAL BILIRUBIN 1.6 MG/DL (0.0-1.0); TOTAL PROTEIN 4.9 G/DL (6.4-8.3); UREA NITROGEN (BUN) 11 mg/dL (9-23)
[2017-09-14 10:49] LABS: CREATINE KINASE 1772 IU/L (1-294)
[2017-09-14 12:03] LABS: PHOSPHORUS 3.1 mg/dL (2.5-4.9)
[2017-09-14 12:10] LABS: MAGNESIUM 0.5 mg/dl (1.3-2.7)
[2017-09-14 12:19] VITALS: BP 120/68
[2017-09-14 17:57] LABS: CHLORIDE 95 MEQ/L (99-109); CREATININE 0.8 MG/DL (0.6-1.3); GFR ESTIMATE (CALCULATED) > 59 mL/min/ (58.99-99999); GLUCOSE 117 mg/dL (70-99); POTASSIUM 3.1 MEQ/L (3.7-5.4); SODIUM 140 MEQ/L (136-147); UREA NITROGEN (BUN) 12 mg/dL (9-23)
[2017-09-14 19:45] VITALS: BP 156/85
[2017-09-14 23:19] VITALS: BP 155/82
[2017-09-15 03:28] VITALS: BP 144/73
[2017-09-15 07:01] LABS: HEMATOCRIT 27.4 % (38.0-50.0); HEMOGLOBIN 8.8 G/DL (12.5-16.6); MCH 29.9 PG (29.0-34.0); MCHC 32.1 G/DL (30.0-36.0); MCV 93.2 FL (86-99); PLATELET COUNT 149 K/uL (156-360); RBC DIS.WIDTH-CV 16.2 % (11.8-14.6); RBC DIS.WIDTH-SD 55.5 % (39-53); RED BLOOD COUNT 2.94 M/uL (4.00-5.50); WHITE BLOOD COUNT 4.1 K/uL (4.1-10.2)
[2017-09-15 07:40] LABS: ALBUMIN 2.8 G/DL (3.2-4.8); ALKALINE PHOSPHATASE 164 IU/L (3-129); ALT (GPT) 37 IU/L (3-49); AST (GOT) 64 IU/L (2-34); CHLORIDE 96 MEQ/L (99-109); CREATINE KINASE 995 IU/L (1-294); CREATININE 0.8 MG/DL (0.6-1.3); GFR ESTIMATE (CALCULATED) > 59 mL/min/ (58.99-99999); GLUCOSE 91 mg/dL (70-99); POTASSIUM 3.2 MEQ/L (3.7-5.4); SODIUM 145 MEQ/L (136-147); TOTAL BILIRUBIN 1.5 MG/DL (0.0-1.0); TOTAL PROTEIN 4.9 G/DL (6.4-8.3); UREA NITROGEN (BUN) 13 mg/dL (9-23)
[2017-09-15 08:00] VITALS: BP 143/73
[2017-09-15 16:22] VITALS: BP 126/64
[2017-09-15 19:46] VITALS: BP 134/74
[2017-09-15 23:36] VITALS: BP 147/68
[2017-09-16 03:52] VITALS: BP 136/64
[2017-09-16 05:51] LABS: HEMATOCRIT 28.2 % (38.0-50.0); MCH 29.7 PG (29.0-34.0); MCHC 31.9 G/DL (30.0-36.0); MCV 93.1 FL (86-99); PLATELET COUNT 143 K/uL (156-360); RBC DIS.WIDTH-CV 16.1 % (11.8-14.6); RED BLOOD COUNT 3.03 M/uL (4.00-5.50); WHITE BLOOD COUNT 3.6 K/uL (4.1-10.2)
[2017-09-16 06:23] LABS: ALBUMIN 2.8 G/DL (3.2-4.8); ALKALINE PHOSPHATASE 181 IU/L (3-129); ALT (GPT) 33 IU/L (3-49); AST (GOT) 49 IU/L (2-34); CHLORIDE 101 MEQ/L (99-109); CREATINE KINASE 537 IU/L (1-294); CREATININE 0.7 MG/DL (0.6-1.3); GFR ESTIMATE (CALCULATED) > 59 mL/min/ (58.99-99999); GLUCOSE 91 mg/dL (70-99); POTASSIUM 3.6 MEQ/L (3.7-5.4); SODIUM 140 MEQ/L (136-147); TOTAL BILIRUBIN 1.3 MG/DL (0.0-1.0); TOTAL PROTEIN 5.4 G/DL (6.4-8.3); UREA NITROGEN (BUN) 12 mg/dL (9-23)
[2017-09-16 06:29] LABS: INTACT PARATHYROID HORMONE 97 pg/mL (10-69)
[2017-09-16 07:50] VITALS: BP 138/76
[2017-09-16 10:59] VITALS: BP 132/70
[2017-09-16 16:30] VITALS: BP 145/72
[2017-09-17] VITALS (8 sets, daily range): BP systolic 111–156; BP diastolic 62–81
[2017-09-17 01:24] LABS: BASOPHIL (%) 0.4 % (0-1); EOSINOPHIL (%) 0.1 % (0-5); HEMATOCRIT 28.8 % (38.0-50.0); HEMOGLOBIN 9.2 G/DL (12.5-16.6); IMMATURE GRANULOCYTE (%) 2.3 % (0.0-0.7); LYMPHOCYTE (%) 8.9 % (15-42); LYMPHOCYTE COUNT 0.7 K/uL (1.0-2.8); MCH 30.5 PG (29.0-34.0); MCHC 31.9 G/DL (30.0-36.0); MCV 95.4 FL (86-99); MONOCYTE (%) 7.3 % (3-12); MONOCYTE COUNT 0.6 K/uL (0-0.8); NEUTROPHIL COUNT 6.8 K/uL (1.8-6.4); RBC DIS.WIDTH-CV 16.4 % (11.8-14.6); RBC DIS.WIDTH-SD 57.1 % (39-53); RED BLOOD COUNT 3.02 M/uL (4.00-5.50); WHITE BLOOD COUNT 8.3 K/uL (4.1-10.2)
[2017-09-17 01:34] LABS: PLATELET COUNT 213 K/uL (156-360)
[2017-09-17 01:40] LABS: SODIUM 141 mEq/L (136-147)
[2017-09-17 01:41] LABS: GLUCOSE 107 mg/dL (70-99)
[2017-09-17 01:44] LABS: CHLORIDE 105 mEq/L (99-109); POTASSIUM 5.1 mEq/L (3.7-5.4)
[2017-09-17 01:45] LABS: CREATININE 0.9 mg/dL (0.6-1.3); GFR ESTIMATE (CALCULATED) > 59 mL/min/ (58.99-99999)
[2017-09-17 01:46] LABS: UREA NITROGEN (BUN) 15 mg/dL (9-23)
[2017-09-18 04:44] VITALS: BP 154/76
[2017-09-18 08:23] VITALS: BP 131/76
[2017-09-18 10:05] LABS: HEMOGLOBIN 8.5 G/DL (12.5-16.6); MCH 31.1 PG (29.0-34.0); MCHC 32.7 G/DL (30.0-36.0); MCV 95.2 FL (86-99); PLATELET COUNT 177 K/uL (156-360); RBC DIS.WIDTH-CV 16.3 % (11.8-14.6); RBC DIS.WIDTH-SD 56.5 % (39-53); RED BLOOD COUNT 2.73 M/uL (4.00-5.50); WHITE BLOOD COUNT 10.6 K/uL (4.1-10.2)
[2017-09-18 10:34] LABS: ALBUMIN 2.5 G/DL (3.2-4.8); ALKALINE PHOSPHATASE 166 IU/L (3-129); ALT (GPT) 21 IU/L (3-49); AST (GOT) 61 IU/L (2-34); CHLORIDE 99 MEQ/L (99-109); CREATININE 0.8 MG/DL (0.6-1.3); GFR ESTIMATE (CALCULATED) > 59 mL/min/ (58.99-99999); GLUCOSE 125 mg/dL (70-99); MAGNESIUM 1.1 mg/dl (1.3-2.7); PHOSPHORUS 2.7 mg/dL (2.5-4.9); POTASSIUM 4.6 MEQ/L (3.7-5.4); TOTAL BILIRUBIN 1.2 MG/DL (0.0-1.0); TOTAL PROTEIN 4.7 G/DL (6.4-8.3); UREA NITROGEN (BUN) 15 mg/dL (9-23)
[2017-09-18 10:35] LABS: SODIUM 131 MEQ/L (136-147)
[2017-09-18 11:43] VITALS: BP 154/78
[2017-09-18 16:00] VITALS: BP 120/60
[2017-09-18 18:22] LABS: CHLORIDE 96 MEQ/L (99-109); CREATININE 0.8 MG/DL (0.6-1.3); GFR ESTIMATE (CALCULATED) > 59 mL/min/ (58.99-99999); GLUCOSE 110 mg/dL (70-99); POTASSIUM 4.7 MEQ/L (3.7-5.4); SODIUM 127 MEQ/L (136-147); UREA NITROGEN (BUN) 15 mg/dL (9-23)
[2017-09-18 20:03] VITALS: BP 113/72
[2017-09-18 22:13] LABS: APPEARANCE CLEAR ((CLEAR)); BILIRUBIN NEGATIVE; BLOOD NEGATIVE; COLOR YELLOW ((YELLOW)); GLUCOSE (STRIP) NEGATIVE; KETONES NEGATIVE; LEUKOCYTES NEGATIVE; NITRITE NEGATIVE; PROTEIN (STRIP) NEGATIVE; SPECIFIC GRAVITY 1.005 (1.000-1.030)
[2017-09-18 22:59] VITALS: BP 124/67
[2017-09-19 04:44] VITALS: BP 116/74
[2017-09-19 06:08] LABS: HEMATOCRIT 24.3 % (38.0-50.0); HEMOGLOBIN 7.8 G/DL (12.5-16.6); MCH 30.2 PG (29.0-34.0); MCHC 32.1 G/DL (30.0-36.0); MCV 94.2 FL (86-99); PLATELET COUNT 154 K/uL (156-360); RBC DIS.WIDTH-CV 15.9 % (11.8-14.6); RBC DIS.WIDTH-SD 54.4 % (39-53); RED BLOOD COUNT 2.58 M/uL (4.00-5.50); WHITE BLOOD COUNT 9.3 K/uL (4.1-10.2)
[2017-09-19 06:42] LABS: ALBUMIN 2.6 G/DL (3.2-4.8); ALKALINE PHOSPHATASE 183 IU/L (3-129); ALT (GPT) 17 IU/L (3-49); AST (GOT) 41 IU/L (2-34); CHLORIDE 101 MEQ/L (99-109); CREATININE 0.8 MG/DL (0.6-1.3); DIRECT BILIRUBIN 0.5 mg/dL (0.0-0.3); GFR ESTIMATE (CALCULATED) > 59 mL/min/ (58.99-99999); GLUCOSE 99 mg/dL (70-99); MAGNESIUM 1.2 mg/dl (1.3-2.7); POTASSIUM 4.4 MEQ/L (3.7-5.4); TOTAL BILIRUBIN 1.2 MG/DL (0.0-1.0); UREA NITROGEN (BUN) 15 mg/dL (9-23)
[2017-09-19 06:43] LABS: SODIUM 135 MEQ/L (136-147); TOTAL PROTEIN 5.5 G/DL (6.4-8.3)
[2017-09-19 08:10] VITALS: BP 117/64
[2017-09-19 08:15] LABS: CREATINE KINASE 313 IU/L (1-294)
[2017-09-19 11:24] VITALS: BP 122/63
[2017-09-19 16:22] VITALS: BP 102/56
[2017-09-19 20:03] VITALS: BP 120/67
[2017-09-19 23:10] VITALS: BP 122/70
[2017-09-20 04:05] VITALS: BP 132/70
[2017-09-20 04:41] LABS: HEMATOCRIT 24.4 % (38.0-50.0); HEMOGLOBIN 8.3 G/DL (12.5-16.6); MCH 31.7 PG (29.0-34.0); MCV 93.1 FL (86-99); PLATELET COUNT 157 K/uL (156-360); RBC DIS.WIDTH-CV 15.6 % (11.8-14.6); RBC DIS.WIDTH-SD 53.3 % (39-53); RED BLOOD COUNT 2.62 M/uL (4.00-5.50); WHITE BLOOD COUNT 8.7 K/uL (4.1-10.2)
[2017-09-20 05:02] LABS: CHLORIDE 101 mEq/L (99-109); MAGNESIUM 1.2 mg/dL (1.3-2.7); POTASSIUM 4.7 mEq/L (3.7-5.4); SODIUM 134 mEq/L (136-147)
[2017-09-20 05:04] LABS: GLUCOSE 104 mg/dL (70-99)
[2017-09-20 05:07] LABS: CREATININE 0.9 mg/dL (0.6-1.3); GFR ESTIMATE (CALCULATED) > 59 mL/min/ (58.99-99999)
[2017-09-20 05:08] LABS: UREA NITROGEN (BUN) 17 mg/dL (9-23)
[2017-09-20 08:08] VITALS: BP 107/66
[2017-09-20 11:03] VITALS: BP 118/68
[2017-09-20 16:17] VITALS: BP 116/62
[2017-09-20 19:54] VITALS: BP 159/79
[2017-09-20 23:19] VITALS: BP 144/75
[2017-09-21 04:11] VITALS: BP 125/72
[2017-09-21 05:47] LABS: HEMATOCRIT 25.1 % (38.0-50.0); HEMOGLOBIN 8.2 G/DL (12.5-16.6); MCH 30.6 PG (29.0-34.0); MCHC 32.7 G/DL (30.0-36.0); MCV 93.7 FL (86-99); PLATELET COUNT 163 K/uL (156-360); RBC DIS.WIDTH-CV 15.7 % (11.8-14.6); RBC DIS.WIDTH-SD 53.6 % (39-53); RED BLOOD COUNT 2.68 M/uL (4.00-5.50); WHITE BLOOD COUNT 5.8 K/uL (4.1-10.2)
[2017-09-21 06:14] LABS: CHLORIDE 100 MEQ/L (99-109); CREATININE 0.8 MG/DL (0.6-1.3); GFR ESTIMATE (CALCULATED) > 59 mL/min/ (58.99-99999); GLUCOSE 92 mg/dL (70-99); MAGNESIUM 1.2 mg/dl (1.3-2.7); POTASSIUM 4.5 MEQ/L (3.7-5.4); SODIUM 135 MEQ/L (136-147); UREA NITROGEN (BUN) 17 mg/dL (9-23)
[2017-09-21] MEDS ORDERED: AMLODIPINE BESYL5 MG PO (06:38)
[2017-09-21] MEDS ORDERED: FERROUS SULFAT325 MG PO (06:38)
[2017-09-21] MEDS ORDERED: QUETIAPINE FUMA25 MG PO (06:39)
[2017-09-21] MEDS ORDERED: CALCIUM CARB1 TABLET PO (06:40)
[2017-09-21] MEDS ORDERED: SENNA PLUS TAB1 EACH PO (06:41)
[2017-09-21] MEDS ORDERED: K-DUR20 MEQ PO (06:41)
[2017-09-21] MEDS ORDERED: POLYETHYLENE GL17 GM PO (06:41)
[2017-09-21] MEDS ORDERED: BISAC-EVAC10 MG PR (06:41)
[2017-09-21] MEDS ORDERED: CEFEPIME HCL2 GM IV (06:42)
[2017-09-21] MEDS ORDERED: ASPIRIN325 MG PO (06:43)
[2017-09-21] MEDS ORDERED: OXYCONTIN10 MG PO (06:44)
[2017-09-21] MEDS ORDERED: LIBRIUM10 MG PO (06:44)
[2017-09-21] MEDS ORDERED: OXYCODONE HCL5 MG PO (06:44)
[2017-09-21 08:08] VITALS: BP 138/70
== END 2017-09-21 16:47 | DRG 483 ==
LOC: TRA 15:36 → EDOF 19:04 → 3EAST 19:04 → ENRESERV 19:05 → EDOF 20:11 → ENRESERV 20:37 → 3EAST 21:02
PROVIDERS: Emergency Medicine; Internal Medicine; Orthopaedic Surgery
PROC: 0RRJ00Z Replacement of Right Shoulder Joint with Reverse Ball and Socket Synthetic Substitute, Open Approach (ICD-10-PCS; principal; 2017-09-16)
DX: S42.211A Unspecified displaced fracture of surgical neck of right humerus, initial encounter for closed fracture (principal); J18.9 Pneumonia, unspecified organism; N17.9 Acute kidney failure, unspecified; M62.82 Rhabdomyolysis; S82.044A Nondisplaced comminuted fracture of right patella, initial encounter for closed fracture; D63.8 Anemia in other chronic diseases classified elsewhere; E83.51 Hypocalcemia; G31.2 Degeneration of nervous system due to alcohol; D69.6 Thrombocytopenia, unspecified; E87.6 Hypokalemia; I10 Essential (primary) hypertension; F10.27 Alcohol dependence with alcohol-induced persisting dementia; H91.90 Unspecified hearing loss, unspecified ear; E86.0 Dehydration; E78.5 Hyperlipidemia, unspecified; E83.42 Hypomagnesemia; G40.909 Epilepsy, unspecified, not intractable, without status epilepticus; S40.011A Contusion of right shoulder, initial encounter; D62 Acute posthemorrhagic anemia; R09.02 Hypoxemia; J98.11 Atelectasis; K70.10 Alcoholic hepatitis without ascites; S00.10XA Contusion of unspecified eyelid and periocular area, initial encounter
CPT/HCPCS: 70450; 70486; 71045; 72125; 72170; 73030; 73060; 73200; 73560; 73700; 74176; 80048; 80048 91; 80053; 80076; 80306 90; 81003; 82150; 82248; 82330; 82436; 82550; 82948; 83690; 83735; 83930; 83935; 83970; 84100; 84133; 84300; 84484; 85025; 85027; 85610; 86850; 86900; 86901; 93005; 94799; 95819; 97530 GP; 99281; 99285; C1713; C1776; G0480; J0610; J0690; J0692; J1100; J1644; J1650; J1940; J2060; J2250; J2270; J2795; J3010; J3475; J7030; J7050; J7070

== ENCOUNTER 2017-11-03 12:51 | Day surgery (SDC) | payer OTHER ==
[~2017-11-03] VITALS: Ht 170.2 cm; Wt 78.6 kg
[~2017-11-03 12:51] MED LIST changes: +AMLODIPINE BESYL5 MG PO; +ASPIRIN325 MG PO; +BISAC-EVAC10 MG PR; +CALCIUM CARB1 TABLET PO; +CEFEPIME HCL2 GM IV; +CHLORDIAZEPOXID10 MG PO; +FERRETTS325 MG PO; +K-DUR20 MEQ PO; +LIBRIUM10 MG PO; +OMEPRAZOLE20 M2 PO; +ONCE DAILY1 EACH PO; +OXYCODONE HCL5 MG PO; +OXYCONTIN10 MG PO; +OYSTER SHELL 51 EACH PO; +POLYETHYLENE GL17 GM PO; +POTASSIUM CHLO10 ME3 PO; +POTASSIUM CHLO20 ME1 PO; +SENNA PLUS TAB1 EACH PO; +TYLENOL EXTRA500 MG PO
[2017-11-03 13:32] VITALS: BP 152/76
[2017-11-03 22:29] VITALS: BP 118/72
[2017-11-03 23:53] VITALS: BP 98/57
[2017-11-04 04:01] VITALS: BP 101/56
[2017-11-04 05:29] LABS: HEMATOCRIT 30.8 % (38.0-50.0); MCV 88.5 FL (86-99)
[2017-11-04 05:56] LABS: CHLORIDE 101 MEQ/L (99-109); CREATININE 0.8 MG/DL (0.6-1.3); GFR ESTIMATE (CALCULATED) > 59 mL/min/ (58.99-99999); GLUCOSE 143 mg/dL (70-99); POTASSIUM 4.6 MEQ/L (3.7-5.4); SODIUM 131 MEQ/L (136-147); UREA NITROGEN (BUN) 23 mg/dL (9-23)
[2017-11-04 08:20] VITALS: BP 123/71
[2017-11-04] MEDS ORDERED: BENADRYL25 MG PO (09:07)
[2017-11-04] MEDS ORDERED: SENNA PLUS TAB1 EACH PO (09:10)
[2017-11-04] MEDS ORDERED: OXYCONTIN10 MG PO (09:11)
[2017-11-04] MEDS ORDERED: ENDOCET 5-3251 EACH PO (09:11)
== END 2017-11-04 11:35 | disposition home or self-care (01) ==
LOC: SDC 12:51 → 2SOUTH 18:05 → 3EAST 18:05 → ENRESERV 18:11 → CANRESERV 19:44 → ENRESERV 19:45 → 3EAST 21:55
PROVIDERS: Orthopaedic Surgery Sports Medicine
DX: T84.028A Dislocation of other internal joint prosthesis, initial encounter (principal); S43.011A Anterior subluxation of right humerus, initial encounter; I10 Essential (primary) hypertension; K21.9 Gastro-esophageal reflux disease without esophagitis; Z79.82 Long term (current) use of aspirin; F10.20 Alcohol dependence, uncomplicated
CPT/HCPCS: 73030; 76000; 80048; 85014; 85018; G0378; J0131; J0330; J0690; J1100; J2250; J2405; J2795; J3010; S0020